=== PATIENT | male | born 1985 | race Caucasian/White ===

== ENCOUNTER 2016-06-29 05:49 | Emergency (ER) | payer MEDICAID ==
[~2016-06-29] VITALS: Ht 188 cm; Wt 147.5 kg
[2016-06-29 05:50] VITALS: BP 145/80; PULSE 82; RESP 18; TEMP 98.2; O2SAT 98
[2016-06-29 06:15] VITALS: BP 138/68; PULSE 85; RESP 28; TEMP 98; O2SAT 96
[2016-06-29] MEDS ORDERED: HALO5P PO (06:25)
[2016-06-29] MEDS ORDERED: COGE1INJ PO (06:25)
[2016-06-29] MEDS ORDERED: METF500T PO (06:25)
[2016-06-29] MEDS ORDERED: VENL75CA44 PO (06:25)
--- NOTE | 2016-06-29 06:45 | RADRPT ---
EXAM DATE/TIME: 06/29/2016 06:23 [place] COMPARISON: No previous studies available for comparison. INDICATIONS : Chest pain since 3am today, short of breath, smoker MEDICAL HISTORY : None. SURGICAL HISTORY : None. ENCOUNTER: Initial ACUITY: 1 day PAIN SCORE: 10/10 LOCATION: Bilateral chest FINDINGS: A single view of the chest demonstrates the lungs to be symmetrically aerated without evidence of mas s, infiltrate or effusion. The cardiomediastinal contours are unremarkable. Osseous structures are intact. CONCLUSION: No acute disease. Rian Silva MD on June 29, 2016 at 6:43 Board Certified Radiologist. This report was verified electronically.
--- NOTE | 2016-06-29 06:58 | PD ---
HPI Chief Complaint: Chest Pain Time Seen by Provider: 06:26 Travel History International Travel<30 days: No Contact w/Intl Traveler<30days: No Traveled to known affect area: No History of Present Illness HPI The patient is a 30 year old male who presents to the [facility] emergency department with a history of chest pain in the center of his chest that began after awakening at 3:30 AM. He denies it awakening him from sound sleep. He reports that his mother did give him an adult aspirin which she took prior to arrival. The patient reports that the pain as being constant and associated with shortness of breath. He reports that the pain as a pressure sensation. He denies ever having this previously. He reports that he does smoke 2 packs of cigarettes per day. He reports that his recent history has been complicated by having a cough productive of green sputum, wheezing, shortness of breath on exertion that began a week ago. The patient also reports that he recently [place] 2 weeks ago. His history is also complicated by using heroin for the first time 2 days ago. He reports that he snorted it. He denies any IV drug use. The patient denies having any known fevers, neck pain, abdominal pain, vomiting, diarrhea, urinary symptoms, or neurologic symptoms. [facility] Past Medical History Narrative Medical The patient's past medical history is significant for heavy daily tobacco use, history of bipolar disorder, history of prediabetes, history of schizophrenia. Bipolar Disorder: Yes Diminished Hearing: No Schizophrenia: Yes Past Surgical History Narrative Surgical The patient has a history of left ankle ORIF. Social History Alcohol Use: Yes (occasionally) Tobacco Use: Yes (2 packs per day) Substance Use: Yes (marijuana daily, tried heroin for the first time a day ago. ) Allergies-Medications (Allergen,Severity, Reaction): Coded Allergies: No Known Allergies (Unverified , 06/29/16) Reported Meds & Prescriptions Reported Meds & Active Scripts Active Reported Venlafaxine ER 24 HR (Venlafaxine HCl) 75 Mg Cap 225 Mg PO DAILY Metformin (Metformin HCl) 500 Mg Tab 500 Mg PO BIDPC With meals Haldol Inj (Haloperidol Lactate) 5 Mg/Ml Inj 5 Mg PO DAILY Cogentin Inj (Benztropine Mesylate) 1 Mg/Ml Inj 1 Mg PO BID Review of Systems Except as stated in HPI: all other systems reviewed are Neg General / Constitutional: No: Fever Eyes: No: Visual changes HENT: Positive: Rhinorrhea, Congestion, No: Headaches Cardiovascular: Positive: Chest Pain or Discomfort, Dyspnea on exertion Respiratory: Positive: Cough, Shortness of Breath, Wheezing Gastrointestinal: No: Nausea, Vomiting, Diarrhea, Abdominal Pain Genitourinary: No: Dysuria Musculoskeletal: No: Pain Skin: No Rash Neurologic: No: Weakness Psychiatric: No: Depression, Mood Disorder Endocrine: No: Polydipsia Hematologic/Lymphatic: No: Easy Bruising Physical Exam Narrative General: The patient is a well-developed well-nourished male in no acute distress. Head and Neck exam: Head is normocephalic atraumatic. Eyes: EOMI, pupils are equal round and reactive to light. Nose: Midline septum with pink mucous membranes Mouth: Dentition unremarkable. Moist mucus membranes. Posterior oropharynx is not erythematous. No tonsillar hypertrophy. Uvula midline. Airway patent. Neck: No palpable lymphadenopathy. No nuchal rigidity. No thyromegaly. Cardiovascular: Regular rate and rhythm without murmurs, gallops, or rubs. No pulse deficit to the extremities and simultaneous auscultation and palpation of his radial artery. Lungs: Soft expiratory wheezes audible bilateral lung stratton anteriorly and posteriorly. No rhonchi or crackles. No accessory muscle use. Abdomen: Soft, without tenderness to palpation in all 4 quadrants of the abdomen. No guarding, rebound, or rigidity. Normal bowel sounds are audible. No tenderness on palpation of McBurney's point. Extremities: No clubbing or cyanosis. The patient has trace pedal edema left lower extremity compared to the right with a history of chronic edema on the left leg related to a prior ankle fracture. 2+ pulses in all 4 extremities. Back: No spinous process tenderness to palpation. No costovertebral angle tenderness to palpation. Neurologic Exam: Grossly nonfocal. Skin Exam: No rash noted. Intact skin that is warm and dry. Data Data Last Documented VS Vital Signs Date Time Temp Pulse Resp B/P Pulse Ox O2 Delivery O2 Flow Rate FiO2 06/29/16 06:15 25 96 Room Air 06/29/16 06:15 98.0 85 138/68 Orders Electrocardiogram (06/29/16 06:26) Complete Blood Count With Diff (4/10/17 06:26) Comprehensive Metabolic Panel (06/29/16) Creatine Kinase (Cpk) (06/29/16) Ckmb (Isoenzyme) Profile (06/29/16) Troponin I (06/29/16) B-Type Natriuretic Peptide (06/29/16) Blood Culture (06/29/16) Lipase (06/29/16) Urinalysis - C+S If Indicated (06/29/16) [place]gren Sedimentation Rate (06/29/16) D-Dimer (06/29/16) Chest, Single Ap (06/29/16) Iv Access Insert/Monitor (06/29/16) Ecg Monitoring (06/29/16) Oximetry (06/29/16) Drug Screen, Random Urine (06/29/16) Alcohol (Ethanol) (06/29/16) MDM Medical Decision Making Medical Screen Exam Complete: Yes Emergency Medical Condition: Yes Medical Record Reviewed: Yes Differential Diagnosis Pneumonia, versus bronchitis with reactive airway, versus pulmonary embolism, versus acute coronary syndrome, versus endocarditis Narrative Course During the course of the patients emergency department visit, the patients history, examination, and differential diagnosis were reviewed with the patient. The patient had IV access obtained and blood work sent for analysis. The patient was placed on a cardiac/vascular sonographer with oximetry and blood pressure monitoring. An EKG was done on arrival. The patient's EKG shows a sinus rhythm heart rate of 80, no acute ST segment elevation or depression. The patient reports that he took an adult aspirin prior to arrival. The patient has wheezing noted on exam. The patient was given DuoNeb nebs 2. The patient was given Solu-Medrol 125 mg IV, Levaquin 750 IV after blood cultures 2 were drawn. The patients laboratory studies and imaging studies are pending at the conclusion of my shift. The patient's case will be checked out to the oncoming emergency room physician to disposition based on the conclusion of the patient' s workup. Capri Melo MD Jun 29, 2016 06:58
[2016-06-29 07:01] LABS: AUTOMATED NEUTROPHIL # 4.4 TH/MM3 (1.8-7.7); BASOPHIL % 0.4 % (0.0-2.0); EOSINOPHIL # 0.2 TH/MM3 (0-0.4); EOSINOPHIL % 3.1 % (0.0-4.0); HEMATOCRIT 40.1 % (39.0-51.0); HEMO FLAGS DIFF FINAL; LYMPHOCYTE # 2.3 TH/MM3 (1.0-4.8); MEAN CELL VOLUME 85.3 FL (80.0-100.0); MEAN CORPUSCULAR HEMOGLOBIN 29.9 PG (27.0-34.0); MEAN CORPUSCULAR HGB CONC 35.1 % (32.0-36.0); MONO % 9.5 % (0.0-8.0); PLATELET COUNT 208 TH/MM3 (150-450); RED CELL DISTRIBUTION WIDTH 13.1 % (11.6-17.2); WHITE BLOOD COUNT 7.7 TH/MM3 (4.0-11.0)
[2016-06-29 07:09] LABS: ALT (GPT) 46 U/L (12-78); ANION GAP 12 MEQ/L (5-15); AST (GOT) 19 U/L (15-37); BICARBONATE 25.4 MEQ/L (21.0-32.0); BLOOD UREA NITROGEN 5 MG/DL (7-18); CHLORIDE 105 MEQ/L (98-107); GLOMERULAR FILTRATION RATE 121 ML/MIN (>89); POTASSIUM 3.6 MEQ/L (3.5-5.1); SODIUM (NA) 142 MEQ/L (136-145)
[2016-06-29 07:13] LABS: ALKALINE PHOSPHATASE 118 U/L (45-117); CREATINE KINASE 189 U/L (39-308); TOTAL BILIRUBIN ADULT 0.1 MG/DL (0.2-1.0)
[2016-06-29] MEDS ORDERED: LEVOFLOXACIN 750 MG PREMIX INJ 150 ML IV ONE (07:15)
[2016-06-29] MEDS ORDERED: methylPREDNISolone SOD SUCC 125 MG/2 ML VIAL IVP ONE (07:15)
[2016-06-29] MEDS ORDERED: SODIUM CHLORID 0.9% 500 ML INJ 500 ML IV ONE (07:15)
[2016-06-29] MEDS: RESP: ALBUTEROL 2.5 MG/IPRATROPIUM 0.5 MG NEB (SCH) INH ×2 (07:18→07:19)
[2016-06-29 07:28] VITALS: BP 138/67; PULSE 79; RESP 18; O2SAT 98
[2016-06-29 07:30] LABS: BLOOD, URINE NEG (NEG); COMMENT (UR) CULT NOT INDICATED; CULTURE IF INDICATED CULT NOT INDICATED; GLUCOSE,URINE NEG (NEG); KETONE, URINE NEG (NEG); MUCUS URINE FEW /lpf (OCC); NITRITE,URINE NEG (NEG); PH, URINE 5.5 (5.0-8.5); URINE COLOR YELLOW (YELLW/STRAW)
[2016-06-29 07:57] LABS: AMPHETAMINE, URINE NEG (NEG); BARBITURATES, URINE NEG (NEG); COCAINE, URINE NEG (NEG)
[2016-06-29] MEDS ORDERED: PRED50 PO (07:57)
[2016-06-29] MEDS ORDERED: AUGM500T7 PO (07:57)
[2016-06-29] MEDS ORDERED: DOXY100C PO (07:57)
--- NOTE | 2016-06-29 07:57 | PD ---
Data Data Last Documented VS Vital Signs Date Time Temp Pulse Resp B/P Pulse Ox O2 Delivery O2 Flow Rate FiO2 06/29/16 07:58 94 18 141/72 96 06/29/16 06:15 Room Air 06/29/16 06:15 98.0 Orders Electrocardiogram (06/29/16:26) Complete Blood Count With Diff (06/29/16 06:26) Comprehensive Metabolic Panel (06/29/16) Creatine Kinase (Cpk) (06/29/16) Ckmb (Isoenzyme) Profile (06/29/16:) Troponin I (06/29/16:) B-Type Natriuretic Peptide (06/29/16) Blood Culture (06/29/16) Lipase (06/29/16:) Urinalysis - C+S If Indicated (06/29/16:) W[place]gren Sedimentation Rate (06/29/16:) D-Dimer (06/29/16:) Chest, Single Ap (06/29/16:) Iv Access Insert/Monitor (06/29/16:) Ecg Monitoring (06/29/16:) Oximetry (06/29/16:) Drug Screen, Random Urine (06/29/16:) Alcohol (Ethanol) (06/29/16:26) Levofloxacin 750 Mg Premix Inj (Levaquin (06/29/16 07:15) Methylprednisolone So Succ Inj (Solumedr (06/29/16 07:15) Albuterol-Ipratropium Neb (Duoneb Neb) (06/29/16 07:15) Sodium Chlorid 0.9% 500 Ml Inj (Ns 500 M (06/29/16 07:15) CKMB (06/29/16 06:30) CKMB% (06/29/16 06:30) Labs Laboratory Tests Test 06/29/16 06/29/16 06:30 07:05 White Blood Count 7.7 TH/MM3 Red Blood Count 4.70 MIL/MM3 Hemoglobin 14.1 GM/DL Hematocrit 40.1 % Mean Corpuscular Volume 85.3 FL Mean Corpuscular Hemoglobin 29.9 PG Mean Corpuscular Hemoglobin 35.1 % Concent Red Cell Distribution Width 13.1 % Platelet Count 208 TH/MM3 Mean Platelet Volume 10.0 FL Neutrophils (%) (Auto) 57.0 % Lymphocytes (%) (Auto) 30.0 % Monocytes (%) (Auto) 9.5 % Eosinophils (%) (Auto) 3.1 % Basophils (%) (Auto) 0.4 % Neutrophils # (Auto) 4.4 TH/MM3 Lymphocytes # (Auto) 2.3 TH/MM3 Monocytes # (Auto) 0.7 TH/MM3 Eosinophils # (Auto) 0.2 TH/MM3 Basophils # (Auto) 0.0 TH/MM3 CBC Comment DIFF FINAL Differential Comment Erythrocyte Sedimentation Rate 9 mm/hr D-Dimer Quantitative (PE/DVT) 0.49 MG/L FEU Sodium Level 142 MEQ/L Potassium Level 3.6 MEQ/L Chloride Level 105 MEQ/L Carbon Dioxide Level 25.4 MEQ/L Anion Gap 12 MEQ/L Blood Urea Nitrogen 5 MG/DL Creatinine 0.76 MG/DL Estimat Glomerular Filtration 121 ML/MIN Rate Random Glucose 90 MG/DL Calcium Level 8.5 MG/DL Total Bilirubin 0.1 MG/DL Aspartate Amino Transf 19 U/L (AST/SGOT) Alanine Aminotransferase 46 U/L (ALT/SGPT) Alkaline Phosphatase 118 U/L Total Creatine Kinase 189 U/L Creatine Kinase MB 1.0 NG/ML Troponin I LESS THAN 0.02 NG/ML B-Type Natriuretic Peptide 7 PG/ML Total Protein 6.9 GM/DL Albumin 3.6 GM/DL Lipase 135 U/L Ethyl Alcohol Level LESS THAN 3 MG/DL Urine Color YELLOW Urine Turbidity CLEAR Urine pH 5.5 Urine Specific [place] 1.015 Urine Protein NEG mg/dL Urine Glucose (UA) NEG mg/dL Urine Ketones NEG mg/dL Urine Occult Blood NEG Urine Nitrite NEG Urine Bilirubin NEG Urine Urobilinogen LESS THAN 2.0 MG/DL Urine Leukocyte Esterase NEG Urine RBC 3 /hpf Urine WBC 5 /hpf Urine Mucus FEW /lpf Microscopic Urinalysis Comment CULT NOT INDICATED MDM Medical Record Reviewed: Yes Supervised Visit with JOSE MANUEL: No Narrative Course Please refer to Dr. Melo's note. CBC & BMP Diagram 06/29/16 06:30 LFTs are normal BNP is 7 Troponins less than 2 Lipase is 134 EtOH < 3 D-Dimer 0.49 UA: NO UTI Last 24 hours Impressions Chest X-Ray 06/29/16 0626 Signed Impressions: Service Date/Time: Wednesday, June 29, 2016 06:23 - CONCLUSION: No acute disease. Rian Silva MD Patient was found resting upon reassessment at 7:45 AM. His heart rate was about 90 and his oxygen saturation about 98% with a facemask and breathing treatments. The lungs sound clear. The d-dimer is reassuring that fairly low pretest probability for PE. The patient ambulated to the restroom without difficulty. He did cough twice during the reexamination. His mother states he had similar cough almost 1 week ago. We'll provide the patient with a course of antibiotics compatible with this current medications as well as 4 days of prednisone and an inhaler. Patient has a RITO risk score of 0 such that coronary artery occlusive disease is considered reasonably safely excluded. Diagnosis Primary Impression: Chest pain Qualified Code: R07.9 - Chest pain, unspecified type Additional Impressions: Cough Wheezing Referrals: Primary Care Physician 2 days Additional Instruction: You have a choice when it comes to health care, and we are glad that you chose [facility]. Hopefully, we have met your expectations on today's visit. You are welcome to return to [facility] at any time, as we are committed to meeting the health care needs of our community. Med/Other Pt SpecificInfo: Prescription(s) given Scripts Albuterol 6.7 GM Inh (Proventil Hfa 6.7 GM Inh)90 Mcg/Act Aer2 Puff INH Q6H PRN (SHORTNESS OF BREATH) #1 INHALER Ref 0 Prov:Sebastián Salazar MD 06/29/16 Prednisone 50 Mg Tab50 Mg PO DAILY 4 Days Ref 0 Prov:Sebastián Salazar MD 06/29/16 Amoxicillin-Clavulanate (Augmentin)500-125 mg Tab1,000 Mg PO BID 7 Days Ref 0 Prov:Sebastián Salazar MD 06/29/16 Doxycycline Hyclate 100 Mg [id number] Mg PO BID #14 CAP Ref 0 Prov:Sebastián Salazar MD 06/29/16 Disposition: 01 DISCHARGE HOME Condition: Stable Sebastián Salazar MD Jun 29, 2016 07:57
[2016-06-29 07:58] VITALS: BP 141/72
[2016-06-29] MEDS ORDERED: ALBU6.7H INH (08:06)
--- NOTE | 2016-06-29 13:57 | EKG ---
Date Performed: 06/29/2016 Time Performed: 06:38:45 PTAGE: 30 years EKG: Sinus rhythm NORMAL ECG NO PREVIOUS TRACING DOCTOR: Eli Ashraf Interpretating Date/Time 06/29/2016 13:56:00
== END 2016-06-29 08:07 | disposition home or self-care (01) ==
LOC: NEPE 05:49
DX: R07.9 Chest pain, unspecified (principal); R05 Cough; R06.2 Wheezing; R06.02 Shortness of breath; F17.210 Nicotine dependence, cigarettes, uncomplicated; Z79.899 Other long term (current) drug therapy
CPT/HCPCS: 71010; 80053; 80307; 81001; 82550; 82552; 83690; 83880; 84484; 85025; 85379; 85652; 87040; 93005; 94640; 94664; 96365; 96375; 99285; J1956; J2930; J7040